=== PATIENT | male | born 1930 | race Caucasian/White ===

== ENCOUNTER 2016-04-15 11:34 | Day surgery (SDC) | payer OTHER ==
[2016-04-13 17:33] LABS: BASOPHILS 0.1 %; BASOPHILS ABSOLUTE 0.01 10/3/uL (0.0-0.16); EOSINOPHILS 0.5 %; EOSINOPHILS ABSOLUTE 0.04 10/3/uL (0.0-0.53); HEMATOCRIT 29.4 % (40.0-51.0); HEMOGLOBIN 9.2 g/dL (13.6-17.8); IMMATURE GRANULOCYTES 0.8 %; IMMATURE GRANULOCYTES ABSOLUTE 0.06 10/3/uL (0.0-0.11); LYMPHOCYTES 26.9 %; MANUAL DIFF NO %; MEAN CORPUS HGB CONC 31.3 g/dL (32.0-36.0); MEAN CORPUSCULAR HEMOGLOB 29.2 pg (26.0-34.0); MEAN CORPUSCULAR VOLUME 93.3 fL (80-100); MEAN PLATELET VOLUME 9.3 fL (9.2-13.0); MONOCYTES 7.4 %; MONOCYTES ABSOLUTE 0.55 10/3/uL (0.21-1.20); NEUTROPHILS 64.3 %; NEUTROPHILS ABSOLUTE 4.78 10/3/uL (2.02-8.40); PLATELET COUNT 322 10/3/uL (150-400); RBC DISTRIBUTION WIDTH 16.4 % (12.0-16.0); RED CELL COUNT 3.15 10/6/uL (4.7-6.1); WHITE BLOOD CELLS 7.4 10/3/uL (4.5-10.5)
[2016-04-13 17:35] LABS: PARTIAL THROMBO TIME 28.8 SEC (22.5-37.2); PROTIME (NOT ORD) 13.3 SEC (12.0-14.5)
[2016-04-13 17:38] LABS: CALCIUM, SERUM 9.1 MG/DL (8.5-10.4); CHLORIDE, SERUM 101 MMOL/L (96-112); CO2 (CARBON DIOXIDE) 26 MMOL/L (24-34); CREATININE 1.28 MG/DL (0.70-1.30); GFR AFRICAN AMERICAN 59 ML/MIN (>=60); GFR NON AFRICAN AMERICAN 51 ML/MIN (>=60); GLUCOSE, SERUM 96 MG/DL (60-99); POTASSIUM, SERUM 4.1 MMOL/L (3.5-5.3); SODIUM, SERUM 138 MMOL/L (135-148)
[2016-04-13 17:41] LABS: BUN (BLOOD UREA NITROGEN) 33 MG/DL (6-23)
--- NOTE | ~2016-04-15 | OP ---
Record Of Operation [facility] [address] [place]. [address] NAME: ELEANOR CEDENO : 32 STATUS : [facility]#: [id number] AGE: 85 ADM/REG DATE : 04/15/16 MR#: [id number] REPORT SERV DATE: 04/15/16 DICTATED BY: Genna SHIELDS DATE: 04/15/16 REPORT STATUS : Draft TRANSCRIBED BY: MODL DATE: 04/15/16 DATE OF PROCEDURE: 04/15/2016 PREOPERATIVE DIAGNOSES: Bladder tumor with urinary clot retention, history of metastatic castrate resistant prostate cancer. POSTOPERATIVE DIAGNOSES: Bladder tumor with urinary clot retention, history of metastatic castrate resistant prostate cancer. PROCEDURE: Cystoscopy, bilateral retrograde pyelography, clot evacuation, TURBT (greater than 5 cm lesion), examination under anesthesia. SURGEON: Genna Shields M.D. ANESTHESIA: General endotracheal. COMPLICATIONS: None. DRAINS: A 24-Trinidadian, three-way Phoenix catheter with irrigation port plugged and 40 mL of water in the balloon. BRIEF HISTORY: Mr. Cedeno is a pleasant 85-year-old white male, well known to me with a history of prostate cancer, status post radical prostatectomy in 1997, with eventual serologic progression treated with bilateral orchiectomy in 2011 for a bladder neck recurrence. He has metastatic disease that has been stable and he is under the care of Dr. Casas; treated with Zytiga, Provenge, and Xtandi. Currently, he is on Zytiga and Xgeva. His recent PSA was over 800. Over the last month, he developed gross hematuria. He needed a catheter placed for retention, had been in emergency room several times for irrigation. I saw him earlier in the week and had him stop his aspirin and he is here for the above procedure. The risks of bleeding, infection, anesthesia, injury to adjacent organs, need for additional therapy, continue catheterization, etc, were all discussed. There were no unanswered questions. DESCRIPTION OF PROCEDURE: Under excellent general anesthesia, the patient was prepped and draped in standard lithotomy position. Digital rectal exam revealed a firm prostate with evidence of extracapsular extension laterally to the right. Cystoscopy was performed with 30- and 70-degree lenses and revealed a normal anterior urethra. 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 Inspection of the bladder revealed tumor emanating from the right bladder wall, eventually noted to extend proximally and surrounding the bladder neck. The left orifice was normal without evidence of any abnormalities. The right orifice was abutted by this tumor, although there was about a centimeter space between the tumor and orifice. I used an 8-Trinidadian cone-tipped catheter to perform a left retrograde pyelogram which showed a normal caliber ureter without filling defect or obstruction. There was good drainage. Similarly on the right, retrograde showed normal caliber ureter without filling defect or obstruction and good drainage. I then attempted to insert a 28-Trinidadian resectoscope sheath unsuccessfully, I settled on a 26-Trinidadian Record Of Operation [address] [place]. [address] NAME: ELEANOR CEDENO : 32 STATUS : [facility] PAT#: [id number] AGE: 85 ADM/REG DATE : 04/15/16 MR#: [id number] REPORT SERV DATE: 04/15/16 DICTATED BY: Genna SHIELDS DATE: 04/15/16 REPORT STATUS : Draft TRANSCRIBED BY: TARYN DATE: 04/15/16 resectoscope sheath. In the bladder, there were multiple small clots which were easily irrigated out of the bladder. Again, it was noted this tumor had a bullous-type appearance and extended from just right of the midline and the trigone of the vesical neck laterally, several centimeters proximally in the bladder and anteriorly with some tumor on the left side of the bladder neck. I used the resectoscope and resected at least 10 g of tissue if not more. This tumor was much larger than 5 cm in its widest dimension. It had an appearance consistent with either transitional cell carcinoma or prostate cancer, my suspicion is prostate cancer. I resected as much tumor as I could and there were few areas anteriorly that I could not reach due to his fixed urethra, but I tried to fulgurate them as best as I could. I suspect that 95% of the tumor was resected. Bleeding was well controlled and I inserted a 24-Trinidadian three-way Phoenix catheter with 40 mL of sterile water in the balloon. He irrigated to light care and was taken to the recovery room in stable condition. I plan to discharge Mr. Cedeno as an outpatient with the following instructions. DISCHARGE INSTRUCTIONS: Home today with plans to go with his catheter at least through the weekend. If he is having problems with it, he can follow up in my office early next week for catheter removal. Alternatively, he could wait about a week. See me in the office to review pathology and remove his catheter at that time. I will leave that up to the patient and his family. If he wanted to take it out himself earlier that is fine as well. Further management will depend, of course on his pathology. KATI/TARYN Genna Shields M.D. / [id number] CC: Aby Leslie Anders Eugene Edward Arrowsmith, M.D.
[~2016-04-15 11:34] MED LIST: ASAB PO; DIOVAN HCT320 MG/25 PO; FISH-EPA1000 MG PO; FLONASE NAS; ICAPS MV PO; NORV5 PO; OS500+D PO; P5 PO; PRILO PO; PROMEGA PO; X25 PO; ZETIA PO; ZOCOR40 PO; ZOLOFT25 MG PO; ZYTIGA250 MG PO
== END 2016-04-15 17:54 | disposition home or self-care (01) ==
LOC: SDC 11:34
PROC: 0TCB8ZZ Extirpation of Matter from Bladder, Via Natural or Artificial Opening Endoscopic (ICD-10-PCS; 2016-04-15)
PROC: 0TBB8ZX Excision of Bladder, Via Natural or Artificial Opening Endoscopic, Diagnostic (ICD-10-PCS; principal; 2016-04-15 12:45)
PROC: BT14YZZ Fluoroscopy of Kidneys, Ureters and Bladder using Other Contrast (ICD-10-PCS; 2016-04-15 12:45)
DX: C61 Malignant neoplasm of prostate (principal); E78.00 Pure hypercholesterolemia, unspecified; M19.90 Unspecified osteoarthritis, unspecified site; I10 Essential (primary) hypertension; K21.9 Gastro-esophageal reflux disease without esophagitis; H91.90 Unspecified hearing loss, unspecified ear; Z79.82 Long term (current) use of aspirin; Z79.899 Other long term (current) drug therapy; Z90.79 Acquired absence of other genital organ(s); Z90.49 Acquired absence of other specified parts of digestive tract; Z83.3 Family history of diabetes mellitus; Z79.52 Long term (current) use of systemic steroids; Z98.890 Other specified postprocedural states
CPT/HCPCS: 36415; 74420; 80048; 85025; 85610; 85730; 88307; 88341; 88342; 93005; A9270-GY; J2370; J2405; J2710; J3010; Q9967